=== PATIENT | female | born 1985 | race Caucasian/White ===

== ENCOUNTER 2018-09-05 23:01 | Emergency (ER) | payer MEDICAID ==
[~2018-09-05] VITALS: Ht 154.9 cm; Wt 86.2 kg
[2018-09-05 23:02] VITALS: BP 160/97
--- NOTE | 2018-09-05 23:06 | NUR ---
PT AMBULATORY TO BR THEN TO ER LOBBY W/ STEADY GAIT IN STABLE CONDITION.
--- NOTE | 2018-09-05 23:10 | NUR ---
PT TAKEN TO BED 9
--- NOTE | 2018-09-05 23:31 | NUR ---
PT BIB SELF FOR CHEST PAIN AND SOB STARTING TODAY AROUND 5PM. RR EVEN AND UNLABORED, TACHYPNEA NOTED, BL BS CLEAR THROUGHOUT. PT STATES SHE HAS TIGHTNESS TO CHEST THAT RADIATES TO LEFT SHOULDER. PT STATES SHE HAD S/S ABOUT A WEEK AGO. NO PMH
[2018-09-05 23:56] LABS: APPEARANCE,URINE CLEAR (CLEAR); BILIRUBIN,URINE NEGATIVE (NEGATIVE); BLOOD, URINE TRACE-I (NEGATIVE); COLOR,URINE YELLOW (YELLOW); LEUKOCYTE ESTERASE ,URINE NEGATIVE (NEGATIVE); NITRITE, URINE NEGATIVE (NEGATIVE); UGLUCOSE 2+ (NEGATIVE)
[2018-09-06 00:05] LABS: RBC,URINE 3-10 (FEW) /HPF (0-5); WBC,URINE 0-5 (RARE) /HPF (0-5)
--- NOTE | 2018-09-06 01:56 | NUR ---
Dr. Hernandes evaluating patient at bedside.
[2018-09-06] MEDS ORDERED: LORazepam 1 MG TAB PO ONE (02:00)
--- NOTE | 2018-09-06 02:05 | NUR ---
PT AMBULATED TO RESTROOM
--- NOTE | 2018-09-06 02:05 | NUR ---
LAB AT BEDSIDE
--- NOTE | 2018-09-06 02:22 | NUR ---
X-Ray at bedside.
[2018-09-06 02:23] LABS: BASOPHILS # (AUTO) 0.1 K/uL (0.00-0.22); BASOPHILS % (AUTO) 0.5 % (0.0-2.0); EOSINOPHILS # (AUTO) 0.1 K/uL (0-0.4); EOSINOPHILS % (AUTO) 0.5 % (0.0-4.0); HEMATOCRIT 41.7 % (36-48); HEMOGLOBIN 14.2 g/dL (12.0-16.0); LYMPHOCYTES # (AUTO) 2.9 K/uL (2.5-16.5); LYMPHOCYTES % (AUTO) 22.1 % (20.5-51.1); MEAN CORPUSCULAR HEMOGLOBIN 31 pg (27-31); MEAN CORPUSCULAR HGB CONC 34 g/dL (33-37); MEAN CORPUSCULAR VOLUME 91.7 fL (80-94); MONOCYTES # (AUTO) 0.7 K/uL (0.8-1.0); MONOCYTES % (AUTO) 5.3 % (1.7-9.3); NEUTROPHILS # (AUTO) 9.4 K/uL (1.8-7.7); NEUTROPHILS % (AUTO) 71.6 % (42.2-75.2); PLATELET COUNT (AUTO) 350 K/uL (140-450); RED BLOOD CELL COUNT(AUTO) 4.54 MIL/uL (4.20-5.40); RED CELL DISTRIBUTION WIDTH 12.6 % (11.6-13.7); WHITE BLOOD COUNT (AUTO) 13.1 K/uL (4.8-10.8)
[2018-09-06 02:43] LABS: ANION GAP 13.4 (8-16); CARBON DIOXIDE 26.6 mmol/L (21-32); CREATININE 0.7 mg/dL (0.6-1.3)
--- NOTE | 2018-09-06 02:47 | NUR ---
PT RESTING IN BED WITH EYES OPEN, SIDE RAILS UP X2, VSS, CONTINUE TO MONITOR
[2018-09-06 02:48] LABS: ALBUMIN 3.9 g/dL (3.4-5.0); TOTAL BILIRUBIN 0.3 mg/dL (0.0-1.0)
[2018-09-06 02:59] LABS: CREATINE KINASE MB 0.6 ng/mL (0-3.6)
[2018-09-06] MEDS ORDERED: KETOROLAC 30 MG/ML VIAL IM ONE (03:15)
[2018-09-06 03:55] VITALS: BP 129/76
== END 2018-09-06 03:55 | disposition home or self-care (01) ==
LOC: MED 23:01
DX: F41.9 Anxiety disorder, unspecified (principal)
CPT/HCPCS: 36415; 71045; 80053; 81001; 82550; 82553; 83690; 84484; 85025; 93005; 96372; 99284; J1885; Q0092